=== PATIENT | female | born 1990 | race African-American/Black ===

== ENCOUNTER 2021-10-01 11:39 | Emergency (ER) | payer MEDICAID ==
[~2021-10-01] VITALS: Ht 167.6 cm; Wt 91.0 kg
[2021-10-01 11:57] VITALS: BP 99/63
== END 2021-10-01 16:43 | disposition home or self-care (01) ==
LOC: ER 11:39
DX: K14.8 Other diseases of tongue (principal)
CPT/HCPCS: 99281